=== PATIENT | male | born 2005 | race Hispanic/Latino ===

== ENCOUNTER 2025-02-22 10:57 | Emergency (ER) | payer BC ==
[2025-02-22] MEDS ORDERED: Ketorolac Tromethamine 30 MG (1 mL) VIAL ONE (11:42)
[2025-02-22] MEDS ORDERED: Ondansetron PF 4 MG/2 ML Vial ONE (12:14)
[2025-02-22] MEDS ORDERED: Bacitracin 1 PK ONE (14:50)
== END 2025-02-22 20:04 ==
LOC: CSHERS 10:57
DX: S82.831A Other fracture of upper and lower end of right fibula, initial encounter for closed fracture (principal); S82.51XA Displaced fracture of medial malleolus of right tibia, initial encounter for closed fracture; V29.99XA Rider (driver) (passenger) of other motorcycle injured in unspecified traffic accident, initial encounter
CPT/HCPCS: 29515; 96374; 96375; 96376; J1885; J2270; J2405